=== PATIENT | male | born 1995 | race African-American/Black ===

== ENCOUNTER 2017-03-13 20:29 | Emergency (ER) | payer SELFPAY ==
[2017-03-13 20:31] VITALS: BP 151/80; PULSE 113; RESP 18; TEMP 99.2; O2SAT 98
[2017-03-13] MEDS ORDERED: SUMA100T2 PO (21:02)
[2017-03-13 21:05] VITALS: BP 124/80; PULSE 87; RESP 16; O2SAT 86
[2017-03-13] MEDS ORDERED: LIDOCAINE 1%/EPINEPHrine 1:100,000 SOLN 20 ML VIAL INFIL ONE (21:15)
[2017-03-13] MEDS ORDERED: TETANUS/DIPHTHERIA TOXOID ADULT 0.5 ML VIAL IM ONE (21:15)
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
[2017-03-13] MEDS ORDERED: ACETAMINOPHEN/HYDROcodone 325 MG/5 MG TAB PO ONE (21:30)
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
[2017-03-13] MEDS ORDERED: IBUP1TAB7 PO (22:18)
== END 2017-03-13 22:36 | disposition home or self-care (01) ==
LOC: NEPE 20:29
DX: S01.01XA Laceration without foreign body of scalp, initial encounter (principal); Y00.XXXA Assault by blunt object, initial encounter; Z23 Encounter for immunization
CPT/HCPCS: 12002; 70450; 90471; 90714

== ENCOUNTER 2017-03-26 08:39 | Emergency (ER) | payer SELFPAY ==
[~2017-03-26] VITALS: Ht 182.9 cm; Wt 78.0 kg
[~2017-03-26 08:39] MED LIST: IBUP1TAB7 PO; SUMA100T2 PO
[2017-03-26 08:41] VITALS: BP 121/75; PULSE 62; RESP 16; TEMP 98; O2SAT 100
--- NOTE | 2017-03-26 09:30 | PD ---
HPI Chief Complaint: Wound/Suture/Staple Re-Check Time Seen by Provider: 09:14 Travel History International Travel<30 days: No Contact w/Intl Traveler<30days: No Traveled to known affect area: No History of Present Illness HPI 21-year-old male here for staple removal from his scalp. Patient had laceration repair approximately 2 weeks ago. He denies any fever, chills, drainage from the site, headache. He has no medical complaint. PFSH Past Medical History Medical History: Denies Significant Hx Diminished Hearing: No Migraines: Yes Social History Alcohol Use: No Tobacco Use: No Substance Use: No Allergies-Medications (Allergen,Severity, Reaction): Coded Allergies: Sulfa (Sulfonamide Antibiotics) (Verified Allergy, Unknown, 03/26/17) Reported Meds & Prescriptions Reported Meds & Active Scripts Active Ibuprofen 800 Mg Tab 800 Mg PO Q8H PRN Reported Sumatriptan (Sumatriptan Succinate) 100 Mg Tab 100 Mg PO ONCE PRN If a satisfactory response has not been obtained at 2 hours, a second dose may be administered Review of Systems Except as stated in HPI: all other systems reviewed are Neg Physical Exam Narrative GENERAL: Alert male no distress. SKIN: Warm and dry. Well-healed laceration to the scalp with [address] HEAD: Normocephalic. EYES: No scleral icterus. No injection or drainage. NECK: Supple, trachea midline. Data Data Last Documented VS Vital Signs Date Time Temp Pulse Resp B/P (MAP) Pulse Ox O2 Delivery O2 Flow Rate FiO2 03/26/17 08:41 98.0 62 16 121/75 (90) 100 Room Air MDM Medical Decision Making Medical Screen Exam Complete: Yes Emergency Medical Condition: Yes Differential Diagnosis Staple removal, wound recheck Narrative Course 21-year-old male here for staple removal to his scalp. The wound is well- healed. No evidence of infection. 4 j[place] were removed. Procedures Procedure Narrative 4 Pel[place] removed from patient's scalp was staple removal. Patient tolerated procedure well. Wound edges are well approximated and healed. Diagnosis Primary Impression: Removal of j[place]ica Referrals: [facility] Disposition: 01 DISCHARGE HOME Condition: Stable MarkcurtisSharifa HOLGUIN Mar 26, 2017 09:30
== END 2017-03-26 09:41 | disposition home or self-care (01) ==
LOC: NEPK 08:39
DX: S01.01XD Laceration without foreign body of scalp, subsequent encounter (principal); X58.XXXD Exposure to other specified factors, subsequent encounter; Z48.02 Encounter for removal of sutures
CPT/HCPCS: 99281